=== PATIENT | male | born 1965 | race Caucasian/White ===

== ENCOUNTER 2017-02-05 13:02 | Emergency (ER) | payer BC ==
[~2017-02-05] VITALS: Ht 177.8 cm; Wt 112.0 kg
[2017-02-05 13:06] VITALS: TEMP 36.8; Ht 177.8 cm; Wt 112.0 kg
[2017-02-05] MEDS ORDERED: LOVA40TA4 PO (13:45)
[2017-02-05] MEDS ORDERED: METF-384 PO (13:45)
[2017-02-05] MEDS ORDERED: LOSA50TA6 PO (13:45)
[2017-02-05] MEDS ORDERED: EMPA1TAB PO (13:45)
[2017-02-05] MEDS ORDERED: AMR2 PO ×2 (13:45)
[2017-02-05] MEDS ORDERED: HYDR50TA3 PO (13:45)
--- NOTE | 2017-02-05 14:13 | EMERGENCY ROOM VISIT NOTE ---
ED Visit Note First contact with patient: 13:38 CHIEF COMPLAINT: Tick in the left lower chest HISTORY OF PRESENT ILLNESS: Patient is a 51-year-old white male who noticed a tick embedded in the left lower this morning. Was able to remove some of it but not all. It has been on for less than 24 hours. They were outside in the chew yesterday. He did find a tick elsewhere which he was able to remove. REVIEW OF SYSTEMS: Review of systems as per HPI. All other systems reviewed were negative. At least 6 systems reviewed. PMH: Electronic medical records are reviewed and summarized as above/below. See Problem List. SOCIAL HISTORY: Patient lives at home. Non-smoker, occasional alcohol use. PHYSICAL EXAM: Vital Signs: Reviewed Nurse's notes. There is a small scabbed over area on the right lower chest, with some surrounding ecchymosis. No obvious retained foreign body or mouth parts of the tick are identified. EMERGENCY DEPARTMENT COURSE: The patient was seen and assessed as above. Treatment options were discussed. Patient can either elect to have the possible foreign body removed here in the emergency Department, or allow it to work its way out on its own. I reassured him that risk of Lyme transition was not a concern given that the tick is no longer present. He has elected to watch the area and treated conservatively. He was educated on the worrisome signs or symptoms for which she should return to the emergency department. 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: Chronic (2) Essential (Primary) Hypertension Status: Chronic (3) Pure Hypercholesterolem Status: Chronic Current/Historical Medications Scheduled Empagliflozin (Jardiance), 10 MG PO DAILY Glimepiride (Glimepiride), 2 MG PO QAM Glimepiride (Glimepiride), 4 MG PO QPM Hydrochlorothiazide (Hctz), 25 MG PO DAILY Losartan Potassium (Cozaar), 50 MG PO DAILY Lovastatin (Mevacor), 60 MG PO DAILY Metformin Hcl (Glucophage), 1,000 MG PO BID Allergies Coded Allergies: No Known Allergies (Unverified , 02/05/17) Vital Signs Date Time Temp Pulse Resp B/P Pulse Ox O2 Delivery O2 Flow Rate FiO2 02/05/17 14:26 93 16 145/57 98 02/05/17 13:06 36.8 108 16 122/77 97 Departure Information Impression Primary Impression: Tick bite Referrals Ye Sandoval M.D. (PCP) Patient Instructions My [facility] Additional Instructions Use Ibuprofen or Tylenol as needed for pain/discomfort. Follow up with family physician for continued care and treatment; rashes, bullet lesion, muscle or joint pain. Watch for signs of infection; increasing redness and swelling, pus like drainage or fevers. Keep antibiotic ointment on the site for 2-3 days. Return to the ED for signs of infection.
[2017-02-05 14:26] VITALS: BP 145/57; PULSE 93; O2SAT 98
== END 2017-02-05 14:27 | disposition home or self-care (01) ==
LOC: C.EDB 13:07 → C.EDD 14:27
DX: S20.96XA Insect bite (nonvenomous) of unspecified parts of thorax, initial encounter (principal); W57.XXXA Bitten or stung by nonvenomous insect and other nonvenomous arthropods, initial encounter; Y92.89 Other specified places as the place of occurrence of the external cause; I10 Essential (primary) hypertension; E11.9 Type 2 diabetes mellitus without complications; E78.00 Pure hypercholesterolemia, unspecified; Z79.84 Long term (current) use of oral hypoglycemic drugs; Z79.899 Other long term (current) drug therapy

== ENCOUNTER → 2017-06-23 | Outpatient (CLI) | payer BC ==
[~2017-06-23] MED LIST: AMR2 PO; EMPA1TAB PO; HYDR50TA3 PO; LOSA50TA6 PO; LOVA40TA4 PO; METF-384 PO
[2017-06-23 14:11] LABS: BLOOD UREA NITROGEN 17 mg/dl (7-18); BUN/CREATININE RATIO 19.3 (10-20); CALCIUM 9.1 mg/dl (8.5-10.1); CARBON DIOXIDE 27 mmol/L (21-32); CHLORIDE 102 mmol/L (98-107); CREATININE 0.89 mg/dl (0.60-1.40); GLUCOSE 143 mg/dl (70-99); POTASSIUM 3.9 mmol/L (3.5-5.1); SODIUM 136 mmol/L (136-145)
[2017-06-23 14:13] LABS: ESTIMATED AVERAGE GLUCOSE 169 mg/dl; HA1C FLAG Normal (Normal)
[2017-06-23 14:19] LABS: ALB/GLOB RATIO 1.3 (0.9-2); ALKALINE PHOSPHATASE 56 U/L (45-117); ALT/SGPT 28 U/L (12-78); AST/SGOT 19 U/L (15-37); CHOLESTEROL 160 mg/dl (0-200); HDL CHOLESTEROL 40 mg/dl; LDL CHOLESTEROL CALCULATED 69 mg/dl; TRIGLYCERIDES 256 mg/dl (0-150); VERY LOW DENSITY LIPOPROT CALC 51 mg/dl
[2017-06-23 14:35] LABS: RATIO 6.4 mcg/mg (0-30.0)
== END | disposition home or self-care (01) ==
LOC: C.LABMFLN 07:07
PROVIDERS: ATTEND Family Medicine
DX: E78.00 Pure hypercholesterolemia, unspecified (principal); I10 Essential (primary) hypertension; Z12.5 Encounter for screening for malignant neoplasm of prostate

== ENCOUNTER → 2017-10-25 | Outpatient (CLI) | payer BC ==
[2017-10-25 12:17] LABS: ESTIMATED AVERAGE GLUCOSE 157 mg/dl; HA1C FLAG Normal (Normal)
[2017-10-25 12:40] LABS: ALT/SGPT 29 U/L (12-78); AST/SGOT 18 U/L (15-37); BLOOD UREA NITROGEN 12 mg/dl (7-18); CALCIUM 8.8 mg/dl (8.5-10.1); CARBON DIOXIDE 27 mmol/L (21-32); CHLORIDE 103 mmol/L (98-107); CREATININE 0.72 mg/dl (0.60-1.40); GLUCOSE 120 mg/dl (70-99); POTASSIUM 4.2 mmol/L (3.5-5.1); SODIUM 136 mmol/L (136-145)
[2017-10-25 12:43] LABS: ALB/GLOB RATIO 1.2 (0.9-2); ALKALINE PHOSPHATASE 55 U/L (45-117); CHOLESTEROL 130 mg/dl (0-200); CHOLESTEROL/HDL RATIO 3.1; HDL CHOLESTEROL 42 mg/dl; LDL CHOLESTEROL CALCULATED 59 mg/dl; TRIGLYCERIDES 145 mg/dl (0-150); VERY LOW DENSITY LIPOPROT CALC 29 mg/dl
== END | disposition home or self-care (01) ==
LOC: C.LABMFLN 07:13
PROVIDERS: ATTEND Family Medicine
DX: E11.9 Type 2 diabetes mellitus without complications (principal); E78.00 Pure hypercholesterolemia, unspecified; I10 Essential (primary) hypertension

== ENCOUNTER → 2018-03-09 | Outpatient (CLI) | payer BC ==
[2018-03-09 13:00] LABS: HEMOGLOBIN A1C 7.4 % (4.5-5.6)
[2018-03-09 14:32] LABS: ALBUMIN 3.9 gm/dl (3.4-5.0); ALT/SGPT 33 U/L (12-78); AST/SGOT 20 U/L (15-37); BLOOD UREA NITROGEN 16 mg/dl (7-18); CALCIUM 8.7 mg/dl (8.5-10.1); CARBON DIOXIDE 29 mmol/L (21-32); CHOLESTEROL 155 mg/dl (0-200); CREATININE 0.83 mg/dl (0.60-1.40); GLUCOSE 151 mg/dl (70-99); POTASSIUM 4.2 mmol/L (3.5-5.1); SODIUM 136 mmol/L (136-145)
[2018-03-09 14:34] LABS: ALKALINE PHOSPHATASE 56 U/L (45-117); LDL CHOLESTEROL CALCULATED 73 mg/dl; TOTAL PROTEIN 7.2 gm/dl (6.4-8.2)
== END | disposition home or self-care (01) ==
LOC: C.LABMFLN 07:02
PROVIDERS: ATTEND Family Medicine
DX: E11.9 Type 2 diabetes mellitus without complications (principal); E78.00 Pure hypercholesterolemia, unspecified; I10 Essential (primary) hypertension